=== PATIENT | female | born 1975 | race Caucasian/White ===

== ENCOUNTER 2017-06-20 15:33 | Emergency (ER) | payer BC, OTHER ==
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
[2017-06-20 16:14] LABS: ACETAMINOPHEN < 10; ANION GAP 11.7; CHLORIDE,CL 105 mmol/L (101-111); SODIUM,NA 137 mmol/L (135-145)
[2017-06-20] MEDS ORDERED: Aluminum Hydroxide/Magnesium Hydroxide/Simethicone Susp 30 ML Cup PO ONE (17:35)
[2017-06-20] MEDS ORDERED: Omeprazole 20 MG Cap.CR PO ONE (17:37)
== END 2017-06-20 18:45 | disposition home or self-care (01) ==
LOC: DL.ED 15:33
DX: T74.21XA Adult sexual abuse, confirmed, initial encounter (principal); T43.222A Poisoning by selective serotonin reuptake inhibitors, intentional self-harm, initial encounter; T39.312A Poisoning by propionic acid derivatives, intentional self-harm, initial encounter; F19.10 Other psychoactive substance abuse, uncomplicated; F15.10 Other stimulant abuse, uncomplicated
CPT/HCPCS: 36415; 80053; 80305; 81001; 81025; 83735; 84443; 85025; 87491; 87591; 99285; A9270; G0480; 99284

== ENCOUNTER 2018-07-28 06:19 | Emergency (ER) | payer SELFPAY ==
[2018-07-28] MEDS ORDERED: Sodium Chloride 0.9% 1,000 ML IV ONE (06:34)
[2018-07-28] MEDS ORDERED: Ondansetron 4 MG/2 ML SDV IV ONE (06:34)
--- NOTE | 2018-07-28 06:43 | EDM.PDOC ---
<Matt Massey - Last Filed: 07/28/18 06:38> ED HPI GENERAL MEDICAL PROBLEM - General Chief Complaint: Flank Pain Stated Complaint: BODY BREAKING DOWN Time Seen by Provider: 07/28/18 06:38 Source of Information: Reports: Patient History Limitations: Reports: No Limitations - History of Present Illness INITIAL COMMENTS - FREE TEXT/NARRATIVE: states woke up with right back pain felt like having diarrhoea sat on toilet and felt worse, started vomiting too. Right Flank Pain Score (Numeric/FACES): 10 - Related Data Allergies Allergy/AdvReac Type Severity Reaction Status Date / Time No Known Allergies Allergy Verified 07/28/18 06:29 Home Meds: Home Meds Levothyroxine Sodium [Synthroid] 250 mcg PO DAILY 07/28/18 [History] Social & Family History - Tobacco Use Smoking Status *Q: Never Smoker - Caffeine Use Caffeine Use: Reports: Soda - Recreational Drug Use Recreational Drug Use: Yes Drug Use in Last 12 Months: Yes Recreational Drug Type: Reports: Methamphetamine ED ROS GENERAL - Review of Systems Review Of Systems: ROS reveals no pertinent complaints other than HPI. ED EXAM, GI/ABD - Physical Exam Exam: See Below Exam Limited By: No Limitations General Appearance: Alert, WD/WN, Mild Distress, Active Emesis, Other (crying) Ears: Hearing Grossly Normal Throat/Mouth: Normal Voice, No Airway Compromise Head: Atraumatic Neck: Non-Tender, Full Range of Motion Respiratory/Chest: No Respiratory Distress Cardiovascular: Regular Rate, Rhythm GI/Abdominal Exam: Guarding, Tender, Other (RUQ region). No: Distended, Rigid, Rebound Back Exam: CVA Tenderness (R) Neurological: Alert, Oriented, Normal Cognition, Normal Gait, No Motor/Sensory Deficits Psychiatric: Tearful Skin Exam: Warm, Dry, Normal Color Lymphatic: No Adenopathy Course - Vital Signs Last Recorded V/S: Last Vital Signs Temp 36.0 C 07/28/18 06:24 Pulse 82 07/28/18 06:24 Resp 32 H 07/28/18 06:24 BP 154/116 H 07/28/18 06:24 Pulse Ox - Orders/Labs/Meds Orders: Active Orders 24 hr Category Date Time Status Abdomen Pelvis wo Cont [CT] Urgent Exams 07/28/18 07:41 Ordered Labs: Laboratory Tests 07/28/18 07/28/18 07/28/18 Range/Units 06:42 06:42 06:42 WBC 4.8 L (5.0-10.0) 10^3/uL RBC 5.08 (4.2-5.4) 10^6/uL Hgb 14.7 (12.0-16.0) g/dL Hct 43.6 (37.0-47.0) % MCV 85.8 (80-100) fL MCH 28.9 (27.0-34.0) pg MCHC 33.7 (33.0-35.0) g/dL Plt Count 173 (150-450) 10^3/uL Neut % (Auto) 56.9 (42.2-75.2) % Lymph % (Auto) 23.2 (20.5-50.1) % [place] % (Auto) 14.9 H (2-8) % Eos % (Auto) 4.6 H (1.0-3.0) % Baso % (Auto) 0.4 (0.0-1.0) % Sodium 133 L (135-145) mmol/L Potassium 3.7 (3.6-5.0) mmol/L Chloride 102 (101-111) mmol/L Carbon Dioxide 20.0 L (21.0-31.0) mmol/L Anion Gap 14.7 BUN 22 H (7-18) mg/dL Creatinine 1.0 (0.6-1.3) mg/dL Est Cr Clr Drug Dosing 75.44 mL/min Estimated GFR (MDRD) > 60 BUN/Creatinine Ratio 22.00 Glucose 133 H (74-105) mg/dL Calcium 8.6 (8.4-10.2) mg/dl Total Bilirubin 0.7 (0.2-1.0) mg/dL AST 38 (10-42) IU/L ALT 31 (10-60) IU/L Alkaline Phosphatase 105 (42-121) IU/L Total Protein 7.3 (6.7-8.2) g/dl Albumin 3.8 (3.2-5.5) g/dl Globulin 3.5 Albumin/Globulin Ratio 1.09 Amylase 66 (28-100) U/L Lipase 27 (22-51) U/L HCG, Qual Negative Urine Color (YELLOW) Urine Appearance (CLEAR) Urine pH (5.0-9.0) Ur Specific [place] (1.005-1.030) Urine Protein (NEGATIVE) Urine Glucose (UA) (NEGATIVE) Urine Ketones (NEGATIVE) Urine Occult Blood (NEGATIVE) Urine Nitrite (NEGATIVE) Urine Bilirubin (NEGATIVE) Urine Urobilinogen (0.2-1.0) mg/dL Ur Leukocyte Esterase (NEGATIVE) Urine RBC /HPF Urine WBC (0-5/HPF) /HPF Ur Epithelial Cells /HPF Amorphous Sediment (0/HPF) /HPF Urine Bacteria (0-FEW/HPF) /HPF Urine Mucus /LPF Urine Opiates Screen (NEGATIVE) Ur Oxycodone Screen (NEGATIVE) Urine Methadone Screen (NEGATIVE) Ur Barbiturates Screen (NEGATIVE) U Tricyclic Antidepress (NEGATIVE) Ur Phencyclidine Scrn (NEGATIVE) Ur Amphetamine Screen (NEGATIVE) U Methamphetamines Scrn (NEGATIVE) Urine MDMA Screen (NEGATIVE) U Benzodiazepines Scrn (NEGATIVE) Urine Cocaine Screen (NEGATIVE) U Marijuana (THC) Screen (NEGATIVE) 07/28/18 07/28/18 Range/Units 07:20 07:20 WBC (5.0-10.0) 10^3/uL RBC (4.2-5.4) 10^6/uL Hgb (12.0-16.0) g/dL Hct (37.0-47.0) % MCV (80-100) fL MCH (27.0-34.0) pg MCHC (33.0-35.0) g/dL Plt Count (150-450) 10^3/uL Neut % (Auto) (42.2-75.2) % Lymph % (Auto) (20.5-50.1) % [place] % (Auto) (2-8) % Eos % (Auto) (1.0-3.0) % Baso % (Auto) (0.0-1.0) % Sodium (135-145) mmol/L Potassium (3.6-5.0) mmol/L Chloride (101-111) mmol/L Carbon Dioxide (21.0-31.0) mmol/L Anion Gap BUN (7-18) mg/dL Creatinine (0.6-1.3) mg/dL Est Cr Clr Drug Dosing mL/min Estimated GFR (MDRD) BUN/Creatinine Ratio Glucose (74-105) mg/dL Calcium (8.4-10.2) mg/dl Total Bilirubin (0.2-1.0) mg/dL AST (10-42) IU/L ALT (10-60) IU/L Alkaline Phosphatase (42-121) IU/L Total Protein (6.7-8.2) g/dl Albumin (3.2-5.5) g/dl Globulin Albumin/Globulin Ratio Amylase (28-100) U/L Lipase (22-51) U/L HCG, Qual Urine Color Yellow (YELLOW) Urine Appearance Slightly cloudy (CLEAR) Urine pH 5.0 (5.0-9.0) Ur Specific [place] >= 1.030 (1.005-1.030) Urine Protein Negative (NEGATIVE) Urine Glucose (UA) Negative (NEGATIVE) Urine Ketones Negative (NEGATIVE) Urine Occult Blood Large H (NEGATIVE) Urine Nitrite Negative (NEGATIVE) Urine Bilirubin Negative (NEGATIVE) Urine Urobilinogen 0.2 (0.2-1.0) mg/dL Ur Leukocyte Esterase Negative (NEGATIVE) Urine RBC 20-30 H /HPF Urine WBC 0-5 (0-5/HPF) /HPF Ur Epithelial Cells Many H /HPF Amorphous Sediment Rare (0/HPF) /HPF Urine Bacteria Rare (0-FEW/HPF) /HPF Urine Mucus Few H /LPF Urine Opiates Screen Negative (NEGATIVE) Ur Oxycodone Screen Negative (NEGATIVE) Urine Methadone Screen Negative (NEGATIVE) Ur Barbiturates Screen Negative (NEGATIVE) U Tricyclic Antidepress Negative (NEGATIVE) Ur Phencyclidine Scrn Negative (NEGATIVE) Ur Amphetamine Screen Negative (NEGATIVE) U Methamphetamines Scrn Negative (NEGATIVE) Urine MDMA Screen Negative (NEGATIVE) U Benzodiazepines Scrn Negative (NEGATIVE) Urine Cocaine Screen Negative (NEGATIVE) U Marijuana (THC) Screen Negative (NEGATIVE) Meds: Medications Discontinued Medications Generic Name Dose Route Start Last Admin Trade Name Freq PRN Reason Stop Dose Admin Hydromorphone HCl 0.5 mg 07/28/18 07:10 07/28/18 07:16 Dilaudid IVPUSH 07/28/18 07:11 0.5 mg ONETIME ONE Administration Sodium Chloride 1,000 mls @ 999 mls/hr 07/28/18 06:34 07/28/18 06:45 Normal Saline IV 07/28/18 07:34 999 mls/hr .BOLUS ONE Administration Ketorolac Tromethamine 30 mg 04/15/19 07:43 07/28/18 07:49 Toradol IVPUSH 07/28/18 07:44 30 mg ONETIME ONE Administration Metoclopramide HCl 10 mg 07/28/18 07:10 07/28/18 07:16 Reglan IVPUSH 07/28/18 07:11 10 mg ONETIME ONE Administration Ondansetron HCl 4 mg 07/28/18 06:34 07/28/18 06:45 Zofran IV 07/28/18 06:35 4 mg ONETIME ONE Administration Tamsulosin HCl 0.4 mg 07/28/18 08:21 Flomax PO 07/28/18 08:22 ONETIME ONE Departure - Departure Disposition: Home, Self-Care 01 Clinical Impression: Kidney stone on right side - Discharge Information Instructions: Kidney Stones, [id number] Forms: ED Department Discharge Care Plan Goals: The patient was advised of the examination, lab and CT results during the visit. The patient was given IV fluids, IV Zofran, IV Dilaudid, IV Reglan, IV Toradol and an oral dose of Flomax while in the ED. The patient was discharged with a script for 1) Toradol (10 mg) #20 to take 1 by mouth every 6 hours, Flomax (0.4 mg) #14 to take 1 by mouth daily and [place] (10/325) #6 to take 1 by mouth every 8 hours as needed for breakthrough pain. The patient was encouraged to increase her oral fluid intake. If the patient has any additional symptoms or concerns, the patient should follow-up with her primary care facility or return to the emergency department. - My Orders Last 24 Hours: My Active Orders 07/28/18 07:41 Abdomen Pelvis wo Cont [CT] Urgent - Assessment/Plan Last 24 Hours: My Active Orders 07/28/18 07:41 Abdomen Pelvis wo Cont [CT] Urgent <Reagan Caldera - Last Filed: 07/28/18 08:30> Course - Radiology Interpretation Free Text/Narrative:: 1 mm right kidney stone CT Results Date: 07/28/18 CT Results Time: 08:20 - Re-Assessments/Exams Free Text/Narrative Re-Assessment/Exam: 07/28/18 08:03 Patient care was taken over at shift change. The patient continued to report right flank pain. The patient reports she does have a history of kidney stones. The patient was given a liter of IV fluids and Zofran for nausea. The patient continued to have nausea and vomiting. An order was placed for IV Reglan and IV Dilaudid. Once lab results were obtained, the patient was given an IV dose of Toradol. The patient was sent to radiology for a CT of the abdomen and pelvis without contrast due to the patient's right flank pain, hematuria, normal WBC and history of kidney stones. Departure - Departure Time of Disposition: 08:26 Condition: Fair - Discharge Information *PRESCRIPTION DRUG MONITORING PROGRAM REVIEWED*: Not Applicable *COPY OF PRESCRIPTION DRUG MONITORING REPORT IN PATIENT SUHA: Not Applicable
[2018-07-28] MEDS ORDERED: Metoclopramide 10 MG/2 ML SDV IVPUSH ONE (07:10)
[2018-07-28] MEDS ORDERED: HYDROmorphone 1 MG/ML Syringe IVPUSH ONE (07:10)
[2018-07-28 07:17] LABS: ANION GAP 14.7; CHLORIDE,CL 102 mmol/L (101-111); SODIUM,NA 133 mmol/L (135-145)
[2018-07-28] MEDS ORDERED: Ketorolac 30 MG/ML SDV IVPUSH ONE (07:43)
[2018-07-28] MEDS ORDERED: Tamsulosin 0.4 MG Cap.ER PO ONE (08:21)
== END 2018-07-28 08:35 | disposition home or self-care (01) ==
LOC: DL.ED 06:19
DX: N13.2 Hydronephrosis with renal and ureteral calculous obstruction (principal); Z79.899 Other long term (current) drug therapy
CPT/HCPCS: 36415; 74176; 80053; 80305-QW; 81001; 82150; 83690; 84703; 85025; 96361; 96374; 96375; 99283; 99284-25; A9270-GY; J1170; J1885; J2405; J2765; J7030

== ENCOUNTER 2019-10-31 12:08 | Emergency (ER) | payer OTHER, SELFPAY ==
[2019-10-31] MEDS ORDERED: Morphine 4 MG/ML Syringe IVPUSH ONE (12:41)
[2019-10-31] MEDS ORDERED: Ondansetron 4 MG/2 ML SDV IVPUSH ONE (12:41)
[2019-10-31] MEDS ORDERED: Sodium Chloride 0.9% 1,000 ML IV ONE (12:52)
[2019-10-31] MEDS ORDERED: Ketorolac 30 MG/ML SDV IVPUSH ONE (12:58)
[2019-10-31] MEDS ORDERED: LORazepam 2 MG/ML SDV IVPUSH PRN (13:10)
[2019-10-31] MEDS ORDERED: fentaNYL 100 MCG/2 ML SDV IVPUSH ONE ×2 (13:12→15:01)
[2019-10-31 13:23] LABS: ANION GAP 12.2 mEq/L (7-13)
--- NOTE | 2019-10-31 14:38 | CT ---
PROCEDURE INFORMATION: Exam: CT Abdomen And Pelvis Without Contrast Exam date and time: 10/31/2019 1:53 PM Age: 44 years old Clinical indication: Abdominal pain; Flank; Right; Additional info: Right abdomen pain and flank pain, left flank pain TECHNIQUE: Imaging protocol: Computed tomography of the abdomen and pelvis without contrast. Radiation optimization: All CT scans at this facility use at least one of these dose optimization techniques: automated exposure control; mA and/or kV adjustment per patient size (includes targeted exams where dose is matched to clinical indication); or iterative reconstruction. COMPARISON: CT Abdomen Pelvis w wo Cont 04/01/2019 7:30 PM FINDINGS: Heart: The heart demonstrates mild diffuse enlargement. Liver: The liver is normal. Gallbladder and bile ducts: The gallbladder is normal. Pancreas: The pancreas is normal. Spleen: The spleen is normal. Adrenals: Mild thickening of the left adrenal gland. The right adrenal gland is normal. Kidneys and ureters: 2 mm calcification present within the distal left ureter with left hydronephrosis. Other calcifications present within the left kidney measuring up to 3 mm. 2 mm nonobstructing calcification present within the right kidney. Stomach and bowel: Unremarkable. No obstruction. No mucosal thickening. Appendix: A normal appendix is identified. Intraperitoneal space: There is a small amount of free pelvic fluid present. Vasculature: Unremarkable. No abdominal aortic aneurysm. Lymph nodes: There are multiple nonspecific nonpathologic but prominent lymph nodes in the mesentery. There are no mesenteric lymph nodes of pathologic dimensions. Retroperitoneal lymphadenopathy is present measuring up to 2.0 cm. Bladder: The bladder is normal. Reproductive: The uterus is normal. Bones/joints: The lumbar spine demonstrates mild degenerative changes at multiple levels. Soft tissues: Fat filled umbilical hernia. IMPRESSION: 1. 2 mm calcification present within the distal left ureter with left hydronephrosis. 2. There are multiple nonspecific nonpathologic but prominent lymph nodes in the mesentery. There are no mesenteric lymph nodes of pathologic dimensions. 3. Retroperitoneal lymphadenopathy is present measuring up to 2.0 cm. 4. There is a small amount of free pelvic fluid present. 5. Fat filled umbilical hernia.
[2019-10-31] MEDS ORDERED: cefTRIAXone 1 GM in Sodium Chloride 0.9% 50 ML IV ONE (15:17)
--- NOTE | 2019-10-31 15:28 | EDM.PDOC ---
Scribed by Hermelinda Harper 10/31/19 1524 for Dea Carver NP ED HPI GENERAL MEDICAL PROBLEM - General Chief Complaint: Abdominal Pain Stated Complaint: LEFT KIDNEY PAIN - BAD PAIN Time Seen by Provider: 10/31/19 12:45 Source of Information: Reports: Patient, RN, RN Notes Reviewed History Limitations: Reports: No Limitations - History of Present Illness INITIAL COMMENTS - FREE TEXT/NARRATIVE: Patient presents to ER with left flank, nausea and vomiting since early this A.M. Patient has a history of kidney disease. er last menstrual period was 3 weeks ago. "This is much worse then ever before". She sees Dr. Durand urology [place] Onset: Today Duration: Getting Worse Location: Reports: Other (flank) Quality: Reports: Ache Severity: Severe Improves with: Reports: None Worsens with: Reports: None Associated Symptoms: Reports: No Other Symptoms Treatments BANK MESSENGER: Reports: NSAIDS Left Flank Pain Score (Numeric/FACES): 10 - Related Data Allergies Allergy/AdvReac Type Severity Reaction Status Date / Time No Known Allergies Allergy Verified 04/01/19 16:29 Home Meds: Home Meds Levothyroxine Sodium [Synthroid] 250 mcg PO DAILY 07/28/18 [History] Naproxen 250 mg PO DAILY 10/31/19 [History] Past Medical History HEENT History: Reports: Impaired Vision Cardiovascular History: Reports: None Respiratory History: Reports: None, Other (See Below) Other Respiratory History: sarcoidosis Gastrointestinal History: Reports: Other (See Below) Other Gastrointestinal History: colitis, anal warts, Genitourinary History: Reports: Renal Calculus CAR WIPER History: Reports: Other (See Below) Other CAR WIPER History: HPV Musculoskeletal History: Reports: Arthritis Neurological History: Reports: None Psychiatric History: Reports: Depression Endocrine/Metabolic History: Reports: Hypothyroidism, Obesity/BMI 30+ Hematologic History: Reports: None Immunologic History: Reports: None Oncologic (Cancer) History: Reports: None Dermatologic History: Reports: None - Infectious Disease History 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 ED EXAM, RENAL/ - Physical Exam Exam: See Below Exam Limited By: No Limitations General Appearance: Other (anxiety) Respiratory/Chest: No Respiratory Distress, Lungs Clear, Normal Breath Sounds, No Accessory Muscle Use, Chest Non-Tender Cardiovascular: Normal Peripheral Pulses, Regular Rate, Rhythm, No Edema, No Gallop, No JVD, No Murmur, No Rub GI/Abdominal: Normal Bowel Sounds, Soft, No Organomegaly, No Distention, Guarding, Tender, Other (Left abdominal and flank pain with palpation. No right abdominal pain. ). No: Rigid, Rebound Back Exam: Normal Inspection, Full Range of Motion, NT Extremities: Normal Inspection, Normal Range of Motion, Non-Tender, Normal Capillary Refill, No Pedal Edema Neurological: Alert, Oriented, CN II-XII Intact, Normal Cognition, Normal Gait, Normal Reflexes, No Motor/Sensory Deficits Psychiatric: Anxious Skin Exam: Warm, Dry, Intact, Normal Color, No Rash Course - Vital Signs Text/Narrative:: Andry 2 mm kidney stones; but the left wit hydronephrosis. Her pain has been difficulty to control with Morphine, toradol, and fentanyl. Spoke to the hospitalist here and because of the hydronephrosis will transfer to [facility] via EMS. Patient agrees. VSS. Urine with large blood, WBC normal. Dr. Carl consulted and agrees to admit to [facility]; He requested Rocephin IV prior to transport; given. Last Recorded V/S: Last Vital Signs Temp 97.1 F 10/31/19 12:42 Pulse 69 10/31/19 12:42 Resp 24 H 10/31/19 12:42 BP 183/95 H 10/31/19 12:42 Pulse Ox 100 10/31/19 12:42 - Orders/Labs/Meds Orders: Active Orders 24 hr Category Date Time Status LORazepam [Ativan] Med 10/31/19 13:10 Active 0.5 mg IVPUSH Q4H PRN cefTRIAXone [Rocephin] 1 gm Med 10/31/19 15:17 Ordered Sodium Chloride 0.9% [Normal Saline] 50 ml IV ONETIME Medication Orders Lorazepam (Ativan) 0.5 mg IVPUSH Q4H PRN PRN Reason: Abdominal Pain Last Admin: 10/31/19 13:20 Dose: 0.5 mg Documented by: UELMNIC Labs: Laboratory Tests 10/31/19 10/31/19 10/31/19 Range/Units 12:20 12:21 12:21 WBC 5.0 (5.0-10.0) 10^3/uL RBC 5.39 (4.2-5.4) 10^6/uL Hgb 15.8 (12.0-16.0) g/dL Hct 47.7 H (37.0-47.0) % MCV 88.5 D (80-100) fL MCH 29.3 (27.0-34.0) pg MCHC 33.1 (33.0-35.0) g/dL Plt Count 191 (150-450) 10^3/uL Sodium 139 (136-145) mmol/L Potassium 4.2 (3.5-5.1) mmol/L Chloride 102 (98-107) mmol/L Carbon Dioxide 29 (21-32) mmol/L Anion Gap 12.2 (7-13) mEq/L BUN 18 (7-18) mg/dL Creatinine 1.32 H (0.55-1.02) mg/dL Est Cr Clr Drug Dosing 49.96 mL/min Estimated GFR (MDRD) 44 BUN/Creatinine Ratio 13.6 (No establ ref range) Glucose 104 H (74-99) mg/dL Calcium 9.1 (8.5-10.1) mg/dL Total Bilirubin 0.7 (0.2-1.0) mg/dL AST 48 H (15-37) U/L ALT 60 H (14-59) U/L Alkaline Phosphatase 153 H (46-116) U/L Total Protein 8.2 (6.4-8.2) g/dL Albumin 4.2 (3.4-5.0) g/dL Globulin 4.0 Albumin/Globulin Ratio 1.0 Urine Color Yellow (YELLOW) Urine Appearance Slightly cloudy (CLEAR) Urine pH 5.5 (5.0-9.0) Ur Specific [place] >= 1.030 (1.005-1.030) Urine Protein 30 H (NEGATIVE) Urine Glucose (UA) Negative (NEGATIVE) Urine Ketones Negative (NEGATIVE) Urine Occult Blood Large H (NEGATIVE) Urine Nitrite Negative (NEGATIVE) Urine Bilirubin Small H (NEGATIVE) Urine Urobilinogen 0.2 (0.2-1.0) mg/dL Ur Leukocyte Esterase Negative (NEGATIVE) Urine RBC 75-100 H /HPF Urine WBC 0-5 (0-5/HPF) /HPF Ur Epithelial Cells Moderate H (NOT SEEN) /HPF Amorphous Sediment Few (NOT SEEN) /HPF Urine Bacteria Rare (0-FEW/HPF) /HPF Urine Mucus Few H (NOT SEEN) /LPF Meds: Medications Generic Name Dose Route Start Last Admin Trade Name Freq PRN Reason Stop Dose Admin Lorazepam 0.5 mg 10/31/19 13:10 10/31/19 13:20 Ativan IVPUSH 0.5 mg Q4H PRN Administration Abdominal Pain Discontinued Medications Generic Name Dose Route Start Last Admin Trade Name Freq PRN Reason Stop Dose Admin Fentanyl 25 mcg 10/31/19 13:12 10/31/19 13:23 Sublimaze IVPUSH 10/31/19 13:13 25 mcg ONETIME ONE Administration Fentanyl 25 mcg 10/31/19 15:01 10/31/19 15:07 Sublimaze IVPUSH 10/31/19 15:02 25 mcg ONETIME ONE Administration Sodium Chloride 1,000 mls @ 999 mls/hr 10/31/19 12:52 10/31/19 12:53 Normal Saline IV 10/31/19 13:52 999 mls/hr .BOLUS ONE Administration Ketorolac Tromethamine 15 mg 10/31/19 12:58 10/31/19 13:04 Toradol IVPUSH 10/31/19 12:59 15 mg ONETIME ONE Administration Morphine Sulfate 4 mg 10/31/19 12:41 10/31/19 12:50 Morphine IVPUSH 10/31/19 12:42 4 mg ONETIME ONE Administration Ondansetron HCl 4 mg 10/31/19 12:41 10/31/19 12:51 Zofran IVPUSH 10/31/19 12:42 4 mg ONETIME ONE Administration - Radiology Interpretation Free Text/Narrative:: CT abdomen and pelvis: 2nn calcification present within the distal left ureter with left hydronephrosis. There is also a 3mm to 2mm nonobstructing calcification present within the right kidney. There are multiple nonspecific nonpathologic but prominent lymph nodes in the mesentery. There are no mesenteric lymph nodes of pathologic dimensions. Retroperitoneal lymphadenopathy is present measuring up to 2.0cm. There is a small amount of free pelvic fluid present. Fat filled umbilical hernia. See rad reported Departure - Departure Time of Disposition: 15:25 Disposition: DC/Tfer to [facility] 02 Condition: Fair Clinical Impression: Renal calculus, left Hydronephrosis Qualifiers: Hydronephrosis type: unspecified Qualified Code(s): N13.30 - Unspecified h ydronephrosis - Discharge Information Forms: ED Department Discharge, Refusal of Exam and Treatment, Interfacility Transfer [facility] Sepsis Event Note (ED) - Evaluation Sepsis Screening Result: No Definite Risk - Focused Exam Vital Signs: Vital Signs Temp Pulse Resp BP Pulse Ox 10/31/19 12:42 97.1 F 69 24 H 183/95 H 100 - My Orders Last 24 Hours: My Active Orders 10/31/19 13:10 LORazepam [Ativan] 0.5 mg IVPUSH Q4H PRN 10/31/19 15:17 cefTRIAXone [Rocephin] 1 gm Sodium Chloride 0.9% [Normal Saline] 50 ml IV ONETIME - Assessment/Plan Last 24 Hours: My Active Orders 10/31/19 13:10 LORazepam [Ativan] 0.5 mg IVPUSH Q4H PRN 10/31/19 15:17 cefTRIAXone [Rocephin] 1 gm Sodium Chloride 0.9% [Normal Saline] 50 ml IV ONETIME I have read and agree with the documentation that has been completed regarding this visit. By signing this record, I attest that the documentation was completed in my physical presence and is an accurate record of the encounter.
== END 2019-10-31 15:58 ==
LOC: DL.ED 12:08
DX: N13.2 Hydronephrosis with renal and ureteral calculous obstruction (principal); E03.9 Hypothyroidism, unspecified; E66.9 Obesity, unspecified; Z68.43 Body mass index [BMI] 50.0-59.9, adult; Z79.899 Other long term (current) drug therapy
CPT/HCPCS: 36415; 74176; 80053; 81001; 85027; 96361; 96365; 96375; 96376; 99285; J0696; J1885; J2060; J2270; J2405; J3010; J7030; J7050; 99284

== ENCOUNTER 2021-07-09 10:04 | Emergency (ER) | payer SELFPAY ==
[2021-07-09] MEDS ORDERED: Fluconazole 100 MG Tab PO ONE (11:20)
[2021-07-09] MEDS ORDERED: cefTRIAXone 1 GM in Sodium Chloride 0.9% 50 ML IV ONE (11:20)
[2021-07-09] MEDS ORDERED: Sodium Chloride 0.9% 10 ML Syringe FLUSH PRN (11:20)
[2021-07-09 11:52] LABS: ANION GAP 12.5 mEq/L (7-13)
== END 2021-07-09 12:45 | disposition home or self-care (01) ==
LOC: DL.ED 10:04
DX: J06.9 Acute upper respiratory infection, unspecified (principal); E03.9 Hypothyroidism, unspecified; E66.9 Obesity, unspecified; Z68.42 Body mass index [BMI] 45.0-49.9, adult; Z79.899 Other long term (current) drug therapy
CPT/HCPCS: 36415; 71045; 80053; 85025; 87040; 96365; 99282; 99283-25; A9270-GY; J0696; J3490

== ENCOUNTER 2022-07-15 18:14 | Emergency (ER) | payer MEDICAID ==
[2022-07-15 20:36] LABS: ANION GAP 10.2 mEq/L (7-13)
[2022-07-17 13:47] LABS: C.TRACHOMATIS BY TMA Negative (Negative); N.GONORRHOEAE BY TMA Negative (Negative)
== END 2022-07-15 21:44 | disposition home or self-care (01) ==
LOC: DL.ED 18:14
DX: R10.12 Left upper quadrant pain (principal); R19.7 Diarrhea, unspecified; E03.9 Hypothyroidism, unspecified; E66.01 Morbid (severe) obesity due to excess calories; Z68.43 Body mass index [BMI] 50.0-59.9, adult; Z79.899 Other long term (current) drug therapy
CPT/HCPCS: 36415; 80053; 81025; 83690; 83735; 85025; 86140; 87491; 87591; 99283; 99284

== ENCOUNTER 2022-12-04 19:31 | Emergency (ER) | payer SELFPAY ==
[2022-12-04 22:28] LABS: APPEARANCE,URINE SLIGHTLY CLOUDY (CLEAR); BILIRUBIN,URINE NEGATIVE (NEGATIVE); COLOR,URINE DARK YELLOW (YELLOW); GLUCOSE,URINE NEGATIVE (NEGATIVE); KETONES,URINE NEGATIVE (NEGATIVE); LEUKOCYTE ESTERASE,URINE TRACE (NEGATIVE); NITRITE,URINE NEGATIVE (NEGATIVE); OCCULT BLOOD,URINE NEGATIVE (NEGATIVE); PH,URINE 5.5 (5.0-9.0); PROTEIN,URINE 30 (NEGATIVE); UROBILINOGEN,URINE 0.2 mg/dL (0.2-1.0)
[2022-12-04 22:36] LABS: EPITHELIAL CELLS,URINE MODERATE /HPF (NOT SEEN); RBC,URINE 0-5 /HPF (0-5)
[2022-12-04 22:37] LABS: BACTERIA,URINE FEW /HPF (0-FEW/HPF); CALCIUM OXALATE CRYSTALS,URINE FEW /HPF (NOT SEEN)
[2022-12-04] MEDS ORDERED: Nitrofurantoin Monohydrate/Macrocrystalline 100 MG Cap PO ONE (23:52)
[2022-12-04] MEDS ORDERED: Take Home: Cyclobenzaprine 10 MG Tab, 4 Tab Pack PO ONE (23:53)
[2022-12-04] MEDS ORDERED: Mupirocin Oint 22 GM Tube TOP ONE (23:57)
== END 2022-12-05 00:11 | disposition home or self-care (01) ==
LOC: DL.ED 19:31
DX: S30.811A Abrasion of abdominal wall, initial encounter (principal); N30.00 Acute cystitis without hematuria; M54.42 Lumbago with sciatica, left side; R03.0 Elevated blood-pressure reading, without diagnosis of hypertension; Z87.898 Personal history of other specified conditions; Z79.899 Other long term (current) drug therapy; X58.XXXA Exposure to other specified factors, initial encounter
CPT/HCPCS: 81001; 87086; 99283; A9270-GY